=== PATIENT | female | born 1950 | race Caucasian/White ===

== ENCOUNTER 2016-07-20 05:56 | Day surgery (SDC) | payer MEDICARE, OTHER ==
[2016-07-20] MEDS ORDERED: Lactated Ringers 1,000 ML IV SCH (06:30)
[2016-07-20 08:03] VITALS: O2SAT 100
--- NOTE | 2016-07-20 08:14 | OP ---
SURGERY DATE: 07/20/16 SURGERY TIME: 656 PREOPERATIVE DIAGNOSIS: 1. ABDOMINAL PAIN. 2. HISTORY OF PEPTIC ULCER DISEASE. POSTOPERATIVE DIAGNOSIS: 1. GASTRIC ANTRAL ULCERS. 2. HIATAL HERNIA. PROCEDURE: 1. Esophagogastroduodenoscopy with biopsy. SURGEON: Dr. Guerra. ANESTHESIA: MAC, medications given by the Anesthesia Department. BRIEF HISTORY: The patient is a 66 y/o WF presenting now for endoscopic evaluation due to the presence of abdominal pain and history of peptic ulcer disease. The patient was felt to need to have reinvestigation. She was reappraised of the risks of the procedure including the risk of perforation, phlebitis, untoward reaction to medication, bleeding, and missed lesions. The patient verbalized her understanding and desired to have the procedure performed. DESCRIPTION OF PROCEDURE: The patient was given the medications by the Anesthesia Department. She had continuous pulse oximetry, ECG monitoring, intermittent BP monitoring, and end tidal CO2 monitoring during the examination. She was placed in the left lateral decubitus position. A bite block was placed and the flexible Olympus gastroscope was used to intubate the oropharynx. A view of the larynx was obtained and was normal. The scope was easily introduced in the esophagus which was normal throughout its length. The stomach was entered where normal gastric rugal folds were seen and these distended nicely with the insufflation of air. The scope was passed along the greater curvature of the stomach to the antrum. There was noted to be erythema, swelling, erosions, and a small ulcer noted in the prepyloric area. The pylorus was intubated and the duodenum was inspected and found to be normal. The scope was withdrawn towards the stomach again. A retroflex view was obtained of the lesser curvature, fundus, and cardia regions of the stomach and these appeared to be normal. The scope was then redirected towards the gastric antrum and biopsies were obtained to rule out the presence of Helicobacter pylori type organisms. The scope was then removed from the patient who tolerated the procedure well and was sent back to outpatient recovery in good condition.
[2016-07-20 08:48] VITALS: BP 183/97; PULSE 68
[2016-07-20] MEDS ORDERED: DIPRIVAN 200 MG/20 ML IV ONE (13:39)
[2016-07-20] MEDS ORDERED: Ketamine HCl 50 MG/ML IJ ONE (13:39)
== END 2016-07-20 08:30 | disposition home or self-care (01) ==
LOC: SDC 05:56
PROVIDERS: ATTEND Family Medicine
PROC: 0DB68ZX Excision of Stomach, Via Natural or Artificial Opening Endoscopic, Diagnostic (ICD-10-PCS; principal; 2016-07-20)
DX: K25.9 Gastric ulcer, unspecified as acute or chronic, without hemorrhage or perforation (principal); Z87.11 Personal history of peptic ulcer disease; K44.9 Diaphragmatic hernia without obstruction or gangrene; E11.9 Type 2 diabetes mellitus without complications; E03.9 Hypothyroidism, unspecified; I25.10 Atherosclerotic heart disease of native coronary artery without angina pectoris; I10 Essential (primary) hypertension
CPT/HCPCS: 00740; 36415; 82962; 88305; J2704

== ENCOUNTER 2016-09-14 05:51 | Day surgery (SDC) | payer MEDICARE, OTHER ==
[2016-09-14] MEDS ORDERED: Lactated Ringers 1,000 ML IV SCH (06:30)
[2016-09-14] MEDS ORDERED: DIPRIVAN 200 MG/20 ML IV ONE (08:00)
[2016-09-14 09:40] VITALS: PULSE 69
[2016-09-14 09:46] VITALS: BP 147/70; O2SAT 99
--- NOTE | 2016-09-14 14:18 | OP ---
SURGERY DATE: 09/14/16 SURGERY TIME: 815 PREOPERATIVE DIAGNOSIS: 1. NAUSEA. 2. EPIGASTRIC PAIN. 3. HISTORY OF PEPTIC ULCER DISEASE. POSTOPERATIVE DIAGNOSIS: 1. MODERATE TO SEVERE ANTRAL GASTRITIS. PROCEDURE: 1. Esophagogastroduodenoscopy with biopsy. SURGEON: Dr. Guerra. ANESTHESIA: MAC, medications given by the Anesthesia Department. BRIEF HISTORY: The patient is a 66 y/o WF presenting with complaints of epigastric pain and nausea. She reports she had a history of peptic ulcers previously. The patient was felt to need to have endoscopic evaluation. She was appraised of the risks of the procedure including the risk of perforation, phlebitis, untoward reaction to medication, bleeding, and missed lesions. The patient verbalized her understanding and desired to have the procedure performed. DESCRIPTION OF PROCEDURE: The patient was given the medications by the Anesthesia Department. She had continuous pulse oximetry, ECG monitoring, intermittent BP monitoring, and end tidal CO2 monitoring during the examination. She was placed in the left lateral decubitus position. A bite block was placed and the flexible Olympus gastroscope was used to intubate the oropharynx. A view of the larynx was obtained and was normal. The scope was easily introduced in the esophagus which was normal throughout its length. The stomach was entered where normal gastric rugal folds were seen and these distended nicely with the insufflation of air. The scope was passed along the greater curvature of the stomach to the antrum where there was noted to be edema and mild ulcerations noted. The pylorus was encountered and intubated and the duodenum inspected and found to be normal. The scope was withdrawn towards the stomach. Again, a retroflex view was obtained of the lesser curvature, fundus, and cardia regions of the stomach and these appeared to be normal. The scope was then redirected towards the gastric antrum and biopsies were obtained to rule out the presence of Helicobacter pylori type organisms. The scope was then removed from the patient who tolerated the procedure well and was sent back to outpatient recovery in good condition.
== END 2016-09-14 10:09 | disposition home or self-care (01) ==
LOC: SDC 05:51
PROVIDERS: ATTEND Family Medicine
PROC: 0DB68ZX Excision of Stomach, Via Natural or Artificial Opening Endoscopic, Diagnostic (ICD-10-PCS; principal; 2016-09-14)
DX: K29.70 Gastritis, unspecified, without bleeding (principal); R10.13 Epigastric pain; Z87.11 Personal history of peptic ulcer disease
CPT/HCPCS: 00740; 36415; 88305; 88312; J2704

== ENCOUNTER 2017-12-27 14:10 | Emergency (ER) | payer MEDICARE, OTHER ==
[2017-12-27] MEDS ORDERED: solu-MEDROL 125 MG IV ONE (14:55)
[2017-12-27] MEDS ORDERED: BENADRYL 50 MG/ML IV ONE (14:55)
[2017-12-27] MEDS ORDERED: BABY ASPIRIN 81 MG CHEW PO ONE (15:05)
--- NOTE | 2017-12-27 15:11 | ERPHSYRPT ---
- History of Present Illness Time Seen by Provider: 12/27/17 14:38 Historian: patient Exam Limitations: no limitations Patient Subjective Stated Complaint: SOB and Chest Pain x1 week Triage Nursing Assessment: Pt presents to the ED with complaints of chest pain and SOB x1 week. Pt states intermittent, states pain currently "4 or 5 out of 10." No distress noted, skin PWD. Pt denies radiation of pain, states pain at center of chest. Skin PWD, Pt is A&O x4. Physician History: 67-year-old white female arrives with complaint of substernal sharp chest pain shortness of breath symptoms for one week. She denies nausea or vomiting. Patient states the pain has been intermittent. Past medical history includes diabetes type 2, hypothyroidism, coronary artery disease, hyperlipidemia, high blood pressure, GERD, depression, ovarian cysts, Kumar's palsy. Past surgical history includes hysterectomy, tubal ligation, cholecystectomy. Social history patient denies tobacco alcohol or illicit drug use. Timing/Duration: week(s), intermittent (one week intermittent) Quality: sharpness Location: substernal Chest Pain Radiation: no radiation Severity of Pain-Max: moderate Severity of Pain-Current: mild Modifying Factors: Improves With: nothing Associated Symptoms: shortness of breath, No nausea, No vomiting, No palpitations, No heartburn, No abdominal pain, No cough, No hurts to breathe, No diaphoresis, No chills, No fever, No fatigue, No weakness, No swelling/lump in chest, No syncope, No rash, No headache, No dizziness, No edema, No back pain Prior Chest Pain/Cardiac Workup: cardiac cath (patient with cardiac stent) Aspirin Treatment Today: 81 mg x 4, provided by ED Allergies/Adverse Reactions: latex Allergy (Intermediate, Verified 09/10/16 16:36) Rash esomeprazole magnesium [From Nexium] Allergy (Mild, Verified 09/10/16 16:36) Rash meperidine HCl [From Demerol] Allergy (Mild, Verified 09/10/16 16:36) spacey sulfamethoxazole [From Bactrim] Allergy (Mild, Verified 09/10/16 16:36) Rash, jittery trimethoprim [From Bactrim] Allergy (Mild, Verified 09/10/16 16:36) rash, jittery Penicillins Adverse Reaction (Verified 09/10/16 16:36) doenst work Home Medications: Atorvastatin Calcium [Lipitor] 40 mg PO HS 09/27/14 [History] Metoprolol Tartrate 50 mg [Lopressor 50 MG] 50 mg PO HS 09/27/14 [History] Sitagliptin Phosphate [Januvia] 100 mg PO DAILY 09/27/14 [History] Glipizide 10 mg [Glucotrol 10 MG] 10 mg PO BID 02/21/16 [History] Isosorbide Mononitrate 60 mg [Imdur 60MG] 60 mg PO DAILY 02/21/16 [History] Albuterol 2.5 mg/3 ml Neb [Proventil 2.5 mg/3 ml Neb] 2.5 mg IH UD [History] Omeprazole 20 MG [Prilosec 20 mg] 20 mg PO DAILY 07/18/16 [History] Losartan/Hydrochlorothiazide [Losartan-Hctz 100-25 mg Tab] 1 tab PO DAILY [History] Hx Tetanus, Diphtheria Vaccination/Date Given: Yes Hx Influenza Vaccination/Date Given: Yes Hx Pneumococcal Vaccination/Date Given: No Immunizations Up to Date: Yes - Review of Systems Constitutional: No Fever, No Chills Eyes: No Symptoms Ears, Nose, & Throat: No Symptoms Respiratory: Dyspnea, No Cough, No Cyanosis, No Dyspnea on Exertion (LOVING), No Stridor, No Wheezing Cardiac: Chest Pain (sharp anterior chest pain , intermittent times one week), No Edema, No Palpitations, No Syncope, No Orthopnea, No PND Abdominal/Gastrointestinal: No Abdominal Pain, No Nausea, No Vomiting, No Diarrhea Genitourinary Symptoms: No Dysuria Musculoskeletal: No Back Pain, No Neck Pain Skin: No Rash Neurological: No Dizziness, No Focal Weakness, No Sensory Changes Psychological: No Symptoms Endocrine: No Symptoms All Other Systems: Reviewed and Negative - Past Medical History Pertinent Past Medical History: Yes Neurological History: Other ENT History: No Pertinent History Cardiac History: Coronary Artery Disease, High Cholesterol, Hypertension Respiratory History: No Pertinent History Endocrine Medical History: Diabetes Type II, Hypothyroidism Musculoskeletal History: No Pertinent History GI Medical History: GERD History: No Pertinent History Psycho-Social History: Depression Female Reproductive Disorders: No Pertinent History Other Medical History: hx ovarian cyst. bells palsey - Past Surgical History Past Surgical History: Yes Neuro Surgical History: No Pertinent History Cardiac: No Pertinent History Respiratory: No Pertinent History Gastrointestinal: Cholecystectomy Genitourinary: No Pertinent History Musculoskeletal: No Pertinent History Female Surgical History: Hysterectomy, Tubal Ligation Other Surgical History: tubal and partial hysterectomy. D&C - Social History Smoking Status: Never smoker Exposure to second hand smoke: No Drug Use: none Patient Lives Alone: No - Female History Hx Now: No - Nursing Vital Signs Nursing Vital Signs: Initial Vital Signs Temperature 99.0 F 12/27/17 14:19 Pulse Rate 87 12/27/17 14:19 Respiratory Rate 20 12/27/17 14:19 Blood Pressure 173/78 12/27/17 14:19 O2 Sat by Pulse Oximetry 97 12/27/17 14:19 Pain Scale Pain Intensity 4 - Physical Exam General Appearance: no apparent distress, alert Eye Exam: PERRL/EOMI, eyes nml inspection Ears, Nose, Throat Exam: normal ENT inspection, moist mucous membranes Neck Exam: normal inspection, non-tender, supple, full range of motion Respiratory Exam: normal breath sounds, lungs clear, No respiratory distress Cardiovascular Exam: regular rate/rhythm, normal heart sounds Gastrointestinal/Abdomen Exam: soft, No tenderness, No mass Back Exam: normal inspection, No CVA tenderness, No vertebral tenderness Extremity Exam: normal inspection, normal range of motion Neurologic Exam: alert, oriented x 3, cooperative, research specialist II-XII nml as tested, normal mood/affect, sensation nml, No motor deficits Skin Exam: normal color, warm, dry SpO2 Interpretation: normal (97%) SpO2: 97 Oxygen Delivery: Room Air - Course Nursing assessment & vital signs reviewed: Yes EKG Interpreted by Me: RATE (92 bpm), Other (EKG: Paced rhythm, 92 bpm, no acute ST or T wave changes noted) - Radiology Exams Chest X-ray Interpretation: Discussed w/ radiologist (chest x-ray: Normal heart and lungs with new AICD. Bony thorax intact with mild deggenerative changes. No acute findings) Ordered Tests: Active Orders 24 hr Category Date Time Status Early Childhood Teacher Assistant STAT Care 12/27/17 15:05 Active EKG-ER Only STAT Care 12/27/17 15:05 Active IV Insertion STAT Care 12/27/17 15:05 Active Pulse Oximetry (ED) STAT Care 12/27/17 15:05 Active CHEST 1 VIEW (PORTABLE) Stat Exams 12/27/17 15:05 Completed AMYLASE Stat Lab 12/27/17 14:20 Completed CBC W DIFF Stat Lab 12/27/17 14:20 Completed CMP Stat Lab 12/27/17 14:20 Completed D-DIMER QUANTITATION Stat Lab 12/27/17 14:20 Completed LIPASE Stat Lab 12/27/17 14:20 Completed Manual Differential NC Stat Lab 12/27/17 14:20 Completed PROTIME WITH INR Stat Lab 12/27/17 14:20 Completed PTT Stat Lab 12/27/17 14:20 Completed TROPONIN Q3H Lab 12/27/17 14:20 Completed TROPONIN Q3H Lab 12/27/17 18:15 Ordered TROPONIN Q3H Lab 12/27/17 21:15 Ordered TROPONIN Q3H Lab 12/28/17 00:15 Ordered TROPONIN Q3H Lab 12/28/17 03:15 Ordered Medication Summary Discontinued Medications Generic Name Dose Route Start Last Admin Trade Name Freq PRN Reason Stop Dose Admin Aspirin 324 mg 12/27/17 15:05 12/27/17 15:10 Baby Aspirin 81 Mg Chew PO 12/27/17 15:06 324 mg STAT ONE Administration Diphenhydramine HCl 25 mg 12/27/17 14:55 12/27/17 15:03 Benadryl 50 Mg/Ml IV 12/27/17 14:56 Not Given STAT ONE Methylprednisolone Sodium Succinate 125 mg 12/27/17 14:55 12/27/17 15:03 Solu-Medrol 125 Mg IV 12/27/17 14:56 Not Given STAT ONE Ondansetron HCl 4 mg 12/27/17 15:25 12/27/17 15:28 Zofran 4 Mg/2 Ml Vial IV 12/27/17 15:26 4 mg STAT ONE Administration Ondansetron HCl Confirm 12/27/17 15:27 Zofran 4 Mg/2 Ml Vial Administered 12/27/17 15:28 Dose 4 mg .ROUTE .STGenius Pack-MED ONE Lab/Rad Data: Laboratory Result Diagrams 12/27/17 14:20 12/27/17 14:20 Laboratory Results 12/27/17 12/27/17 12/27/17 Range/Units 14:20 14:20 14:20 WBC (4.0-10.5) K/mm3 RBC (4.1-5.4) M/mm3 Hgb (12.0-16.0) gm/dl Hct (35-47) % MCV (78-100) fl MCH (26-32) pg MCHC (32-36) g/dl RDW (11.5-14.0) % Plt Count (150-450) K/mm3 MPV (6-9.5) fl Absolute Granulocytes (1.4-6.9) Segmented Neutrophils (36.0-66.0) % Band Neutrophils (0.0-2.0) % Lymphocytes (Manual) (24-44) % Monocytes (Manual) (0.0-12.0) % Eosinophils (Manual) (0.00-3.0) % Platelet Estimate (NORMAL) RBC Morphology PT 12.0 (9.95-12.35) SECONDS INR 1.03 (0.8-3.0) APTT 34.1 (25.3-37.0) SECONDS D-Dimer 834 H* (215-500) ng/mL Sodium (137-145) mmol/L Potassium (3.5-5.1) mmol/L Chloride (98-107) mmol/L Carbon Dioxide (22-30) mmol/L Anion Gap (5-15) MEQ/L BUN (7-17) mg/dL Creatinine (0.52-1.04) mg/dL Estimated GFR ML/MIN Glucose (74-106) mg/dL Calcium (8.4-10.2) mg/dL Total Bilirubin (0.2-1.3) mg/dL AST (14-36) U/L ALT (0-35) U/L Alkaline Phosphatase (38-126) U/L Troponin I < 0.012 (0.000-0.034) ng/mL Serum Total Protein (6.3-8.2) g/dL Albumin (3.5-5.0) g/dL Amylase 54 (30-110) U/L Lipase 391 H (23-300) U/L 12/27/17 12/27/17 Range/Units 14:20 14:20 WBC 4.6 (4.0-10.5) K/mm3 RBC 5.02 (4.1-5.4) M/mm3 Hgb 14.5 (12.0-16.0) gm/dl Hct 42.6 (35-47) % MCV 84.9 (78-100) fl MCH 28.9 (26-32) pg MCHC 34.0 (32-36) g/dl RDW 15.1 H (11.5-14.0) % Plt Count 70 L (150-450) K/mm3 MPV 13.3 H (6-9.5) fl Absolute Granulocytes 2.52 (1.4-6.9) Segmented Neutrophils 49 (36.0-66.0) % Band Neutrophils 6 H (0.0-2.0) % Lymphocytes (Manual) 33 (24-44) % Monocytes (Manual) 9 (0.0-12.0) % Eosinophils (Manual) 3 (0.00-3.0) % Platelet Estimate DECREASED (NORMAL) RBC Morphology NORMAL PT (9.95-12.35) SECONDS INR (0.8-3.0) APTT (25.3-37.0) SECONDS D-Dimer (215-500) ng/mL Sodium 145 (137-145) mmol/L Potassium 3.6 (3.5-5.1) mmol/L Chloride 109 H (98-107) mmol/L Carbon Dioxide 22 (22-30) mmol/L Anion Gap 18.1 H (5-15) MEQ/L BUN 19 H (7-17) mg/dL Creatinine 1.30 H (0.52-1.04) mg/dL Estimated GFR 43.2 ML/MIN Glucose 260 H (74-106) mg/dL Calcium 8.9 (8.4-10.2) mg/dL Total Bilirubin 1.30 (0.2-1.3) mg/dL AST 105 H (14-36) U/L ALT 47 H (0-35) U/L Alkaline Phosphatase 131 H (38-126) U/L Troponin I (0.000-0.034) ng/mL Serum Total Protein 7.6 (6.3-8.2) g/dL Albumin 4.2 (3.5-5.0) g/dL Amylase (30-110) U/L Lipase (23-300) U/L - Progress Progress: improved Air Movement: fair Progress Note: 12/27/17 17:42 67-year-old white female with history of AICD, diabetes, coronary artery disease arrives with complaint of intermittent pain anterior sternal region symptoms going on for a week. Patient with a paced rhythm on EKG no acute ST changes are noted troponin within normal limits unfortunately d-dimer is elevated and patient has a GFR of 43. Chest x-ray is unremarkable unfortunately as well patient with a platelet count which is 70 I initially discussed the case with Dr. Dixon who is the patient's family physician he requested that I discussed the case with Dr Morris the patient's manager country psych discussed the case with Dr. Cazares who is corrosion control technician for Dr. Morris. It was still feeling that the patient should have a CTA performed. Unfortunately however at this facility CTAs will not be performed on patient's with a GFR of less than 50. We are not unable to have a VQ scan over the weekend therefore I discussed the case is Dr. Cazares's recommendation that the patient be discussed with hospitalist over at [facility], I discussed this with Dr. Matt, the ER physician at [facility] he is excepted the patient for transfer. Patient is stable at this time - Departure Time of Disposition: 17:45 Departure Disposition: Transfer ([facility]) Clinical Impression: Thrombocytopenia, increased d-dimer Chest pain Qualifiers: Chest pain type: unspecified Qualified Code(s): R07.9 - Chest pain, unspecified Condition: Fair Critical Care Time: No Referrals: CHARLIE DIXON [Primary Care Provider] -
[2017-12-27 15:25] LABS: Hematocrit 42.6 % (35-47); Hemoglobin 14.5 gm/dl (12.0-16.0); Mean Cell Volume 84.9 fl (78-100); Mean Corpuscular Hemoglobin 28.9 pg (26-32); Mean Platelet Volume 13.3 fl (6-9.5); Platelet Count 70 K/mm3 (150-450); Red Blood Count 5.02 M/mm3 (4.1-5.4); Red Cell Distribution Width 15.1 % (11.5-14.0); White Blood Count 4.6 K/mm3 (4.0-10.5)
[2017-12-27] MEDS ORDERED: Zofran 4 MG/2 ML VIAL IV ONE (15:25)
--- NOTE | 2017-12-27 15:26 | XRAY ---
Indication: Chest pain and short of breath 1-2 weeks. Comparison: September 06, 2016. Portable chest again demonstrates normal heart and lungs with new left-sided AICD. Bony thorax intact again with mild degenerative changes. No acute findings.
[2017-12-27] MEDS ORDERED: Zofran 4 MG/2 ML VIAL ONE (15:27)
[2017-12-27 15:41] LABS: INR 1.03 (0.8-3.0)
[2017-12-27 15:44] LABS: PTT 34.1 SECONDS (25.3-37.0)
[2017-12-27 15:49] LABS: ALBUMIN 4.2 g/dL (3.5-5.0); ANION GAP 18.1 MEQ/L (5-15); BILIRUBIN,TOTAL 1.3 mg/dL (0.2-1.3); Calcium 8.9 mg/dL (8.4-10.2); Creatinine 1 1.3 mg/dL (0.52-1.04); Potassium 3.6 mmol/L (3.5-5.1); Total Protein 7.6 g/dL (6.3-8.2)
[2017-12-27 16:17] LABS: AMYLASE 54 U/L (30-110); LIPASE 391 U/L (23-300)
[2017-12-27 16:25] LABS: BAND 6 % (0.0-2.0); Eosinophil 3 % (0.00-3.0); Lymphocytes 33 % (24-44); Monocyte 9 % (0.0-12.0); Neutrophils 49 % (36.0-66.0); Total Cells Counted 100
[2017-12-27 16:26] LABS: Platelet Estimate DECREASED (NORMAL)
[2017-12-27 16:27] LABS: Granulocyte Absolute (ANC) 2.52 (1.4-6.9)
[2017-12-27 16:59] VITALS: BP 149/87; PULSE 74
[2017-12-27 17:51] VITALS: O2SAT 97
== END 2017-12-27 18:14 | disposition short-term general hospital (02) ==
LOC: ED 14:10
DX: R07.9 Chest pain, unspecified (principal); D69.6 Thrombocytopenia, unspecified; R79.1 Abnormal coagulation profile; R06.02 Shortness of breath; Z79.899 Other long term (current) drug therapy; E11.9 Type 2 diabetes mellitus without complications; Z79.84 Long term (current) use of oral hypoglycemic drugs
CPT/HCPCS: 36000; 36415; 71045; 80053; 82150; 83690; 84484; 85025; 85379; 85610; 85730; 93005; 93041; 96374; 99285; J2405; A9270-GY

== ENCOUNTER 2020-07-25 19:20 | Emergency (ER) | payer MEDICARE, OTHER ==
[2020-07-25] MEDS ORDERED: Sodium Chloride 0.9% 1000 ML 1,000 ML IV SCH (19:45)
[2020-07-25 19:59] LABS: Absolute Neutrophil Ct (ANC) 6.06 (1.4-6.9); BASOPHIL % 0.3 % (0.0-0.4); Basophil (Absolute #) 0.02 (0-0.4); Eosinophil (Absolute #) 0 (0-0.5); Hematocrit 30.9 % (35-47); Hemoglobin 9.4 gm/dl (12.0-16.0); Lymphocyte (Absolute #) 0.94 (1.0-4.6); Lymphocytes % 12.1 % (24.0-44.0); Mean Cell Volume 82.4 fl (78-100); Mean Corpuscular Hemoglobin 25.1 pg (26-32); Mean Corpuscular Hgb Concent. 30.4 g/dl (32-36); Mean Platelet Volume 11.1 fl (7.5-11.0); Monocyte (Absolute #) 0.74 (0.0-1.3); Monocytes % 9.5 % (0.0-12.0); Neutrophil % 78.1 % (36.0-66.0); Platelet Count 184 K/mm3 (150-450); Red Blood Count 3.75 M/mm3 (4.1-5.4); Red Cell Distribution Width 18.9 % (11.5-14.0); White Blood Count 7.8 K/mm3 (4.0-10.5)
[2020-07-25 20:11] LABS: ALBUMIN 3.3 g/dL (3.5-5.0); ANION GAP 19.2 MEQ/L (5-15); BILIRUBIN,TOTAL 2.3 mg/dL (0.2-1.3); Calcium 8.9 mg/dL (8.4-10.2); Creatinine 1 3.87 mg/dL (0.52-1.04); EST GLOMERULAR FILTRATION RATE 12.2 ML/MIN; MAGNESIUM 2.7 mg/dL (1.6-2.3); Total Protein 7.1 g/dL (6.3-8.2)
[2020-07-25 20:14] LABS: Potassium 5.4 mmol/L (3.5-5.1)
--- NOTE | 2020-07-25 20:26 | ERPHSYRPT ---
- History of Present Illness Time Seen by Provider: 07/25/20 19:30 Source: patient Exam Limitations: no limitations Patient Subjective Stated Complaint: RN contacted and states " She fell today and hasn't been acting herself and hasn't been wanting to do anything". Triage Nursing Assessment: Patient arrived to ED via ambulance. Patient very poor historian. Patient able to tell RN where she was is and her name and . Lungs clear bilateral A/P throughout. Patient denies SOB. Patient denies chest pain. Patient not very talkative. Bilateral pupils brisk and reactive to light. Patient cool upon touch upon arrival. Patient called and stated patient hasn't been acting herself latley and she hasn't been wanting to eat anything. Patient stated patient fell and they don't believe she hit head. Patient takes blood thinner. 2+ pitting edema noted to right lower leg/foot. No edema noted to left lower extremity. + pedal and radial pulses noted. Bilateral lower extremities cool to touch. Patient states she hasn't had any N/V. Patient does complain of having a sore throat for awhile. Hand system support specialist strong and equal bilateral.Cap refill 4 seconds. Skin turgor < 3 seconds. Oral mucosa pink, moist. No abscesses or abnormalities noted. Patient able to move all extremities without difficulty. + Bs times 4 quads. BS hypoactive. ABD large, edematous and distended. Patient denies pain or discomfort to ABD. Denies pain or discomfort upon palpitation. No abnormalites noted upon visual and touch to patient's head. No bumps or areas noted. Physician History: Patient is a 70-year-old female presents to our emergency department for evaluation of generalized weakness anorexia and sore throat. Patient arrived via EMS. reported that patient has not been feeling well over the past several days. She has been very weak. Patient reportedly fell at home. Patient denies pain/injury due to trauma or fall. Patient complains of a sore throat. She is somewhat dizzy as well. No associated chest pain or shortness of breath. No nausea vomiting or diaphoresis. Symptoms are moderate in intens ity. No specific worsening or improving factors. Patient voices no other complaints or concerns at this time. HPI limited as patient is a poor historian. Timing/Duration: today Severity: moderate Modifying Factors: Improves With: nothing Associated Symptoms: denies symptoms, No nausea, No vomiting, No shortness of breath, No heartburn, No diaphoresis, No cough, No chills, No syncope, No seizure, No weakness Allergies/Adverse Reactions: latex Allergy (Intermediate, Verified 07/25/20 19:49) Rash esomeprazole magnesium [From Nexium] Allergy (Mild, Verified 07/25/20 19:49) Rash meperidine HCl [From Demerol] Allergy (Mild, Verified 07/25/20 19:49) spacey sulfamethoxazole [From Bactrim] Allergy (Mild, Verified 07/25/20 19:49) Rash, jittery trimethoprim [From Bactrim] Allergy (Mild, Verified 07/25/20 19:49) rash, jittery Penicillins Adverse Reaction (Verified 07/25/20 19:49) doenst work Home Medications: Atorvastatin Calcium [Lipitor] 40 mg PO HS 09/27/14 [History] Metoprolol Tartrate 50 mg [Lopressor 50 MG] 50 mg PO BID 09/27/14 [History] Sitagliptin Phosphate [Januvia] 100 mg PO DAILY 09/27/14 [History] Glipizide 10 mg [Glucotrol 10 MG] 10 mg PO BID 02/21/16 [History] Isosorbide Mononitrate 60 mg [Imdur 60MG] 60 mg PO DAILY 02/21/16 [History] Albuterol 2.5 mg/3 ml Neb [Proventil 2.5 mg/3 ml Neb] 2.5 mg IH UD 02/27/16 [History] Omeprazole 20 MG [Prilosec 20 mg] 20 mg PO BID 07/18/16 [History] Losartan/Hydrochlorothiazide [Losartan-Hctz 100-25 mg Tab] 1 tab PO DAILY 09/10/16 [History] Hx Tetanus, Diphtheria Vaccination/Date Given: No Hx Influenza Vaccination/Date Given: Yes Hx Pneumococcal Vaccination/Date Given: Yes Immunizations Up to Date: Yes Travel Risk - International Travel Have you traveled outside of the country in past 3 weeks: No - Coronavirus Screening Are you exhibiting any of the following symptoms?: No Close contact with a COVID-19 positive Pt in past 14-21 Days: No - Review of Systems Constitutional: No Symptoms, No Fever, No Chills Eyes: No Symptoms Ears, Nose, & Throat: No Symptoms Respiratory: No Symptoms, No Cough, No Dyspnea Cardiac: No Symptoms, No Chest Pain, No Edema, No Syncope Abdominal/Gastrointestinal: No Symptoms, No Abdominal Pain, No Nausea, No Vomiting, No Diarrhea Genitourinary Symptoms: No Symptoms, No Dysuria Musculoskeletal: No Symptoms, No Back Pain, No Neck Pain Skin: No Symptoms, No Rash Neurological: No Symptoms, No Dizziness, No Focal Weakness, No Sensory Changes Psychological: No Symptoms Endocrine: No Symptoms Hematologic/Lymphatic: No Symptoms Immunological/Allergic: No Symptoms All Other Systems: Reviewed and Negative - Past Medical History Pertinent Past Medical History: Yes Neurological History: Other ENT History: No Pertinent History Cardiac History: Coronary Artery Disease, High Cholesterol, Hypertension Respiratory History: No Pertinent History Endocrine Medical History: Diabetes Type II, Hypothyroidism Musculoskeletal History: No Pertinent History GI Medical History: GERD History: No Pertinent History Psycho-Social History: Depression Female Reproductive Disorders: No Pertinent History Other Medical History: hx ovarian cyst. bells palsey - Past Surgical History Past Surgical History: Yes Neuro Surgical History: No Pertinent History Cardiac: No Pertinent History Respiratory: No Pertinent History Gastrointestinal: Cholecystectomy Genitourinary: No Pertinent History Musculoskeletal: No Pertinent History Female Surgical History: Hysterectomy, Tubal Ligation Other Surgical History: tubal and partial hysterectomy. D&C - Social History Smoking Status: Never smoker Exposure to second hand smoke: No Drug Use: none Patient Lives Alone: No - Female History Hx Last Menstrual Period: POST - Nursing Vital Signs Nursing Vital Signs: Initial Vital Signs Temperature 95.1 F 07/25/20 19:25 Pulse Rate 67 07/25/20 19:25 Respiratory Rate 22 07/25/20 19:25 Blood Pressure 96/56 07/25/20 19:25 O2 Sat by Pulse Oximetry 95 07/25/20 19:25 Pain Scale Pain Intensity 0 - Physical Exam General Appearance: no apparent distress, alert Eye Exam: PERRL/EOMI, eyes nml inspection Ears, Nose, Throat Exam: normal ENT inspection, TMs normal, pharynx normal, moist mucous membranes Neck Exam: normal inspection, non-tender, supple, full range of motion Respiratory Exam: normal breath sounds, lungs clear, No respiratory distress Cardiovascular Exam: regular rate/rhythm, normal heart sounds, normal peripheral pulses Gastrointestinal/Abdomen Exam: soft, normal bowel sounds, No tenderness, No mass Back Exam: normal inspection, normal range of motion, No CVA tenderness, No vertebral tenderness Extremity Exam: normal inspection, normal range of motion, pelvis stable, contusions, other (Bilateral pitting edema of lower extremities. Right greater than left. Anasarca pitting edema on abdomen as well.) Neurologic Exam: alert, oriented x 3, cooperative, normal mood/affect, nml cerebellar function, nml station & gait, No motor deficits Skin Exam: normal color, warm, dry, No rash Lymphatic Exam: No adenopathy SpO2 Interpretation: normal SpO2: 87 O2 Delivery: Room Air - Course Nursing assessment & vital signs reviewed: Yes EKG Interpreted by Me: RATE (60), NORMAL AXIS, NORMAL INTERVALS, prolonged QT i nterval - Radiology Exams Chest X-ray Interpretation: Teleradiologist Report (Greater than left mid to lower lung field atelectasis versus infiltrate. Pacemaker.) Ordered Tests: Active Orders 24 hr Category Date Time Status Research Project Manager STAT Care 07/25/20 19:39 Active EKG-ER Only STAT Care 07/25/20 19:38 Active IV Insertion STAT Care 07/25/20 19:38 Active Pulse Oximetry (ED) STAT Care 07/25/20 19:38 Active CHEST 1 VIEW (PORTABLE) Stat Exams 07/25/20 19:39 Taken HEAD WITHOUT CONTRAST [CT] Stat Exams 07/25/20 19:56 Taken NECK WO CONTRAST [CT] Stat Exams 07/25/20 20:36 Taken CBC W DIFF Stat Lab 07/25/20 19:50 Completed CMP Stat Lab 07/25/20 19:50 Completed MAGNESIUM Stat Lab 07/25/20 19:50 Completed Bacon Screen Stat Lab 07/25/20 19:50 Completed NT PRO BNP Urgent Lab 07/25/20 19:50 Completed TROPONIN Q3H Lab 07/25/20 19:50 Completed TROPONIN Q3H Lab 07/25/20 22:45 Ordered TROPONIN Q3H Lab 07/26/20 01:45 Ordered TROPONIN Q3H Lab 07/26/20 04:45 Ordered TROPONIN Q3H Lab 07/26/20 07:45 Ordered UA W/RFX UR CULTURE Stat Lab 07/25/20 19:39 Ordered Medication Summary Generic Name Dose Route Start Last Admin Trade Name Freq PRN Reason Stop Dose Admin Sodium Chloride 1,000 mls @ 100 mls/hr 07/25/20 19:45 07/25/20 20:52 Sodium Chloride 0.9% 1000 Ml IV 08/24/20 19:44 100 mls/hr .Q10H SHADI Administration Discontinued Medications Generic Name Dose Route Start Last Admin Trade Name Keaton PRN Reason Stop Dose Admin Calcium Gluconate 1,000 mg 07/25/20 20:31 07/25/20 20:52 Calcium Gluconate 10% 1000 Mg IV 07/25/20 20:32 1,000 mg STAT ONE Administration Calcium Gluconate Confirm 07/25/20 20:49 Calcium Gluconate 10% 1000 Mg Administered 07/25/20 20:50 Dose 1,000 mg IV .9Flava ONE Lab/Rad Data: Laboratory Result Diagrams 07/25/20 19:50 07/25/20 19:50 Laboratory Results 07/25/20 07/25/20 07/25/20 Range/Units 19:50 19:50 19:50 WBC (4.0-10.5) K/mm3 RBC (4.1-5.4) M/mm3 Hgb (12.0-16.0) gm/dl Hct (35-47) % MCV (78-100) fl MCH (26-32) pg MCHC (32-36) g/dl RDW (11.5-14.0) % Plt Count (150-450) K/mm3 MPV (7.5-11.0) fl Gran % (36.0-66.0) % Eos # (Auto) (0-0.5) Absolute Lymphs (auto) (1.0-4.6) Absolute Monos (auto) (0.0-1.3) Lymphocytes % (24.0-44.0) % Monocytes % (0.0-12.0) % Eosinophils % (0.00-5.0) % Basophils % (0.0-0.4) % Absolute Granulocytes (1.4-6.9) Basophils # (0-0.4) Sodium (137-145) mmol/L Potassium (3.5-5.1) mmol/L Chloride (98-107) mmol/L Carbon Dioxide (22-30) mmol/L Anion Gap (5-15) MEQ/L BUN (7-17) mg/dL Creatinine (0.52-1.04) mg/dL Estimated GFR ML/MIN Glucose (74-106) mg/dL Calcium (8.4-10.2) mg/dL Magnesium (1.6-2.3) mg/dL Total Bilirubin (0.2-1.3) mg/dL AST (14-36) U/L ALT (0-35) U/L Alkaline Phosphatase (38-126) U/L Troponin I 0.104 H* (0.000-0.034) ng/mL NT-Pro-B Natriuret Pep 50179 H (0-900) pg/mL Serum Total Protein (6.3-8.2) g/dL Albumin (3.5-5.0) g/dL Monoscreen NEGATIVE (Negative) Group A Strep Antibody NOT DETECTED (NEGATIVE) 07/25/20 07/25/20 Range/Units 19:50 19:50 WBC 7.8 (4.0-10.5) K/mm3 RBC 3.75 L (4.1-5.4) M/mm3 Hgb 9.4 L (12.0-16.0) gm/dl Hct 30.9 L (35-47) % MCV 82.4 (78-100) fl MCH 25.1 L (26-32) pg MCHC 30.4 L (32-36) g/dl RDW 18.9 H (11.5-14.0) % Plt Count 184 (150-450) K/mm3 MPV 11.1 H (7.5-11.0) fl Gran % 78.1 H (36.0-66.0) % Eos # (Auto) 0 (0-0.5) Absolute Lymphs (auto) 0.94 L (1.0-4.6) Absolute Monos (auto) 0.74 (0.0-1.3) Lymphocytes % 12.1 L (24.0-44.0) % Monocytes % 9.5 (0.0-12.0) % Eosinophils % 0.0 (0.00-5.0) % Basophils % 0.3 (0.0-0.4) % Absolute Granulocytes 6.06 (1.4-6.9) Basophils # 0.02 (0-0.4) Sodium 128 L (137-145) mmol/L Potassium 5.4 H (3.5-5.1) mmol/L Chloride 100 (98-107) mmol/L Carbon Dioxide 15 L* (22-30) mmol/L Anion Gap 19.2 H (5-15) MEQ/L BUN 79 H (7-17) mg/dL Creatinine 3.87 H (0.52-1.04) mg/dL Estimated GFR 12.2 ML/MIN Glucose 177 H (74-106) mg/dL Calcium 8.9 (8.4-10.2) mg/dL Magnesium 2.7 H (1.6-2.3) mg/dL Total Bilirubin 2.30 H (0.2-1.3) mg/dL AST 72 H (14-36) U/L ALT 28 (0-35) U/L Alkaline Phosphatase 94 (38-126) U/L Troponin I (0.000-0.034) ng/mL NT-Pro-B Natriuret Pep (0-900) pg/mL Serum Total Protein 7.1 (6.3-8.2) g/dL Albumin 3.3 L (3.5-5.0) g/dL Monoscreen (Negative) Group A Strep Antibody (NEGATIVE) - Progress Progress: improved Progress Note: 07/25/20 22:23 70-year-old female with generalized weakness acute renal failure acidosis electrolyte abnormalities will need nephrology consultation. Case discussed with Dr. Guerra who advised transfer. Case discussed with Dr. Hidalgo ER physician at [facility] who accepts transfer. Patient's updated on transfer to [facility] for further evaluation and treatment. We intended to put a Sharma catheter however patient was transferred out before Sharma catheter can be inserted. 07/25/20 22:26 Counseled pt/family regarding: lab results, diagnosis, rad results - Departure Departure Disposition: Transfer Clinical Impression: Anasarca, Generalized weakness, Fall, Sore throat, Acute renal injury, Hyperkalemia, High anion gap metabolic acidosis, Elevated bilirubin, Anemia, Elevated brain natriuretic peptide (BNP) level, Hypothermia Condition: Stable Critical Care Time: No Referrals: CHARLIE GUERRA [Primary Care Provider] -
[2020-07-25] MEDS ORDERED: Calcium Gluconate 10% 1000 MG IV ONE ×2 (20:31→20:49)
[2020-07-25 20:47] LABS: TROPONIN 0.104 ng/mL (0.000-0.034)
[2020-07-25] MEDS ORDERED: Sodium Chloride 0.9% 1000 ML 1,000 ML ONE (20:49)
[2020-07-25 21:22] VITALS: O2SAT 87
[2020-07-25 22:23] VITALS: BP 108/61; PULSE 60
--- NOTE | 2020-07-26 08:47 | XRAY ---
Indication: Acute mental status change. Raspy voice. Comparison: December 27, 2017. Portable apical lordotic chest demonstrates new cardiomegaly and small bibasilar pleural effusions with atelectasis right greater than left concerning for cardiac decompensation/CHF. Superimposed pneumonia not excluded. Stable left AICD, old granulomatous disease, osteopenia, and bony degenerative changes. Comment: Preliminary interpretation was made by [facility] who does not report cardiomegaly and effusions.
--- NOTE | 2020-07-26 08:55 | XRAY ---
Indication: Status post fall. Acute mental status change. Multiple contiguous axial images obtained through the head without contrast. Comparison: December 20, 2016. There is again age-appropriate global atrophy and minimal periventricular degenerative micro-ischemia bilaterally. No acute intracranial hemorrhage, abnormal extra-axial fluid collection, or mass effect. Fourth ventricle is midline without hydrocephalus. Bony calvarium intact. New minimal mucosal thickening right maxillary sinus. New right head/right face subcutaneous air presumed from recent trauma/laceration. Impression: 1. Stable atrophy and degenerative micro-ischemia within normal limits for patient's age. 2. New right head/right facial subcutaneous air presumed related to recent trauma/laceration. 3. No acute fracture or acute intracranial abnormalities.
--- NOTE | 2020-07-26 09:03 | XRAY ---
Indication: Status post fall. Acute mental status change. Multiple contiguous axial images obtained through the neck without contrast as ordered. Comparison: None. There are multiple bilateral dental amalgams producing extreme beam artifact limiting these levels. Right head/right face demonstrates subcutaneous air presumed from recent trauma/laceration. Additional soft tissue air bubbles seen in the deep right control engineer space. There is diffuse soft tissue swelling/edema. Parotid and submandibular glands are bilaterally symmetric. Small centimeter/subcentimeter cervical lymph nodes bilaterally none pathologically enlarged. Major arteries and veins are normal in course and caliber. Thyroid gland unremarkable. Supra-and infraglottic airway are widely patent. Osseous structures demineralized consistent with patient's age. Cervical spine intact with lordotic reversal, C5-T1 degenerative disc disease, moderate multilevel bilateral degenerative facet hypertrophy, and old distal left clavicle fracture deformity. Lung apices demonstrates incompletely visualized right effusion. Left lung apex clear. Partially visualized left-sided AICD. Impression: 1. Right head/right facial soft tissue air bubbles presumed related to recent trauma/laceration. 2. Incompletely visualized right lung effusion and diffuse soft tissue swelling/edema. Rule out cardiac decompensation/CHF versus fluid overload. 3. Osteopenia, old left clavicle fracture, cervical lordotic reversal, and multilevel cervical degenerative spondylosis.
== END 2020-07-25 22:15 | disposition short-term general hospital (02) ==
LOC: ED 19:20
DX: R60.1 Generalized edema (principal); R53.83 Other fatigue; R53.1 Weakness; R07.9 Chest pain, unspecified; J02.9 Acute pharyngitis, unspecified; N17.9 Acute kidney failure, unspecified; E87.5 Hyperkalemia; E87.2 Acidosis; E80.7 Disorder of bilirubin metabolism, unspecified; D64.9 Anemia, unspecified; T68.XXXA Hypothermia, initial encounter; R79.89 Other specified abnormal findings of blood chemistry
CPT/HCPCS: 36000; 36415; 70450; 70490; 71045; 80053; 83735; 83880; 84484; 85025; 86308; 87651; 93005; 93041; 94760; 96374; 99285; J0610